=== PATIENT | male | born 1980 | race Caucasian/White ===

== ENCOUNTER 2016-06-30 22:19 | Observation (INO) | payer OTHER ==
[~2016-06-30] VITALS: Ht 185.4 cm; Wt 114.3 kg
[~2016-06-30 22:19] MED LIST: CELEXA40 MG PO; LAMICTAL200 MG PO; XANAX2 MG PO
--- NOTE | 2016-06-30 22:19 | NUR ---
PT LETICIA BANDAS. TAKEN TO BED 4
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
[2016-06-30 22:37] VITALS: BP 132/76
--- NOTE | 2016-06-30 23:58 | NUR ---
Patient appears to be resting comfortably in bed. Vital Signs within normal limits. Respirations even and unlabored. PT CURRENTLY EATING PUDDING AND DRINKING ORANGE JUICE
[2016-07-01] MEDS ORDERED: NACL 0.9% 1,000 ML IV SCH (01:16)
[2016-07-01] MEDS ORDERED: ACETAMINOPHEN 325 MG TAB PO PRN (01:20)
[2016-07-01] MEDS ORDERED: ONDANSETRON 4 MG/2 ML VIAL IVP PRN (01:20)
--- NOTE | 2016-07-01 01:50 | NUR ---
Patient will be admitted to care of DR. Annette BURRELL. Admited to TELE. Will go to room 106B. Belongings list completed. Report to [facility].
--- NOTE | 2016-07-01 02:00 | NUR ---
PT TRANSFER DELAYED D/T PT REFUSAL OF IV START AND ADMISSION
[2016-07-01 02:43] VITALS: BP 156/96
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
--- NOTE | 2016-07-01 02:48 | NUR ---
Pt report given to [facility]. Transfer of care at this time.
[2016-07-01 04:00] VITALS: BP 129/73
--- NOTE | 2016-07-01 04:02 | NUR ---
VS TAKEN, STABLE. PATIENT IS AWAKE WATCHING TV. NO S/S OF DISTRESS NOTED. CALL LIGHT WITHIN REACH.
--- NOTE | 2016-07-01 06:07 | NUR ---
PATIENT IS SLEEPING. NO S/S OF DISTRESS OR DISCOMFORT NOTED. WILL CONTINUE TO MONITOR.
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
--- NOTE | 2016-07-01 07:08 | NUR ---
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 CALL LIGHT WITHIN REACH.
--- NOTE | 2016-07-01 07:30 | NUR ---
Patient's Plan of Care was discussed and reviewed with MEMBERSHIP ADVISOR: DANIELLE PATEL
--- NOTE | 2016-07-01 08:00 | NUR ---
STILL NON-COMPLIANT. REFUSED VS TO BE CHECK. NO DISTRESS NOTED. INFORMED CAHRGE NURSE ELIJAH PHILLIPS -RICH.
--- NOTE | 2016-07-01 08:00 | NUR ---
STILL NON-COMPLIANT. REFUSED VS TO BE CHECK AT THIS TIME. NO DISTRESS NOTED. INFORMED CHARGE NURSE AHSAN BEEBE. Addendum: 07/01/16 at 0928 by Dell Tan LVN WRONG ENTRY. ENTERED WRONG CHARGE NURSE NAME.
--- NOTE | 2016-07-01 08:26 | NUR ---
HEMATOLOGY SPECIALIST DOMENICO REPORTED THAT PT. REFUSED BLOOD DRAW. EXPLAINED TO PT. ABOUT MD ORDER OF BLOOD DRAW AND IMPORTANCE OF IT. VERBALIZED UNDERSTANDING BUT STILL REFUSED. INFORMED CHARGE NURSE ELIJAH BEEBE.
--- NOTE | 2016-07-01 08:28 | NUR ---
PATIENT HAS BEEN SCREENED AND CATEGORIZED LOW NUTRITION RISK. PATIENT WILL BE SEEN WITHIN 7 DAYS OF ADMISSION. 07/07/[address]
[2016-07-01] MEDS ORDERED: ENOXAPARIN 40 MG/0.4 ML SYR SUBQ SCH (09:00)
[2016-07-01] MEDS ORDERED: CITALOPRAM 20 MG TAB PO SCH (09:00)
--- NOTE | 2016-07-01 09:25 | NUR ---
PAGED TAMIKA REAGAN AND SPOKE TO YAW REGARDING PT. REFUSAL OF TELEMETRY, IVF, BLOOD DRAW, VS, SCHEDULED MEDICINE. INFORMED CHARGE NURSE ELIJAH BEEBE.
--- NOTE | 2016-07-01 09:35 | NUR ---
DR. BURRELL [facility] CALLED BACK, INFORMED THAT PT. WAS NON COMPLIANT, REFUSED VS CHECK, AM BLOOD DRAW, TELEMETRY MONITORING, IVF, SCHEDULED MEDICINE. NO ORDER RECEIVED. INFORMED CHARGE NURSE ELIJAH BEEBE.
--- NOTE | 2016-07-01 09:50 | NUR ---
STILL NON-COMPLIANT. WENT AMA AND REFUSED TO SIGN AMA FORM. INFORMED CHARGE NURSE ELIJAH BEEBE.
--- NOTE | 2016-07-01 10:32 | NUR ---
PAGED TAMIKA REAGAN REGARDING PT. AMA. LEFT CALL BACK NUMBER.
--- NOTE | 2016-07-01 10:40 | NUR ---
TAMIKA REAGAN CALLED BACK AND INFORMED OF PT. AMA AND REFUSED TO SIGN AMA FORM.
--- NOTE | 2016-07-01 15:03 | NUR ---
SS NOTE: I RECEIVED A CALL FROM CARISA ([phone]) AT [facility] REQUESTING ER REPORT AND PT DEMO SHEET. SENT REQUESTED INFORMATION TO [phone], RECEIVED FAX CONFIRMATION. SHE WAS ALSO MADE AWARE THAT PT WENT AMA.
== END 2016-07-01 09:50 | disposition left against medical advice (07) ==
LOC: MED 22:19 → UNDOADMIN 07-01 01:20 → MTU 07-01 01:20
PROVIDERS: ADMIT Hospitalist; ATTEND Hospitalist
DX: R41.82 Altered mental status, unspecified (principal); B37.9 Candidiasis, unspecified; F13.10 Sedative, hypnotic or anxiolytic abuse, uncomplicated; F11.10 Opioid abuse, uncomplicated; Z47.1 Aftercare following joint replacement surgery
CPT/HCPCS: 36415; 70450; 71010; 80053; 80305; 82553; 83880; 84484; 85025; 85379; 85610; 85730; 87081; 93005; 96360; 96361; 99285; G0378; G0482; J7030; Q0092

== ENCOUNTER 2016-07-18 00:15 | Emergency (ER) | payer OTHER ==
[~2016-07-18] VITALS: Ht 182.9 cm; Wt 108.9 kg
[2016-07-18 00:19] VITALS: BP 143/88
--- NOTE | 2016-07-18 01:13 | NUR ---
TO ER BED 2
--- NOTE | 2016-07-18 01:27 | NUR ---
36/M PRESENTS TO ER C/O LEFT SIDE PAIN x 1700. PT STATES HE FALL ON BUSHES AND LANDED ON HIS LEFT SIDE. DENIES N/V/D; SKIN IS PINK/WARM/DRY; AAOX4 WITH EVEN AND STEADY GAIT; LUNGS CLEAR BL; HR EVEN AND REGULAR; PT DENIES ANY FEVER, CP, SOB, OR COUGH AT THIS TIME; PATIENT STATES PAIN OF 8/10 AT THIS TIME; VSS; PATIENT POSITIONED FOR COMFORT; HOB ELEVATED; BEDRAILS UP X2; BED DOWN. ER MD MADE AWARE OF PT STATUS.
--- NOTE | 2016-07-18 01:54 | NUR ---
Patient discharged with v/s stable. Written and verbal after care instructions explained. PT REFUSED TO TAKE AFTERCARE INSTRUCTIONS AND REFUSED TO SIGN AFTERCARE INSTRUCTIONS. Ambulatory with steady gait. Advised to follow up with PMD.
[2016-07-18 01:56] VITALS: BP 140/82
== END 2016-07-18 01:56 | disposition home or self-care (01) ==
LOC: MERGE 00:15 → MED 00:15
DX: M79.601 Pain in right arm (principal); R03.0 Elevated blood-pressure reading, without diagnosis of hypertension

== ENCOUNTER 2016-07-21 21:23 | Emergency (ER) | payer OTHER ==
[~2016-07-21] VITALS: Ht 185.4 cm; Wt 111.1 kg
[2016-07-21 21:28] VITALS: BP 147/91
--- NOTE | 2016-07-21 23:58 | NUR ---
PATIENT LEFT WITHOUT BEING SEEN BY DR. FAGAN. NO FURTHER CARE PROVIDED FOR PATIENT.
== END 2016-07-21 23:58 | disposition left against medical advice (07) ==
LOC: MED 21:23
DX: F10.129 Alcohol abuse with intoxication, unspecified (principal); M79.601 Pain in right arm; Z53.21 Procedure and treatment not carried out due to patient leaving prior to being seen by health care provider